=== PATIENT | male | born 1980 | race Caucasian/White ===

== ENCOUNTER 2020-04-05 08:00 | Outpatient (RCR) | payer MEDICAID, SELFPAY ==
--- NOTE | 2020-02-17 12:58 | MHC.PT.EP ---
[facility] [place] [facility] [place] [facility] [place] [facility] [address] [phone] F: [phone] F: [phone] F: [phone] F: [phone] Physical Therapy Plan of Care Date of Evaluation: 02/17/20 Date of Surgery: Diagnosis: CVA Assessment: Patient is a 39 year old R handed male who presents with s/s consistent with CVA. He does not work and was homeless down in [place] prior to stroke. Patient past medical history includes alcoholism, high cholesterol. He is no longer drinking but is non-compliant with medications. Sensation is seemingly absent in R LE/UE. Current impairments include ROM, strength, safety, independence, activity tolerance and functional mobility. Functional limitations include decreased ability to walk, stand, transfer, negotiate stairs, and perform weight bearing activities.. Patient is motivated with good rehab potential. Skilled PT will address impairments and functional limitations in order to achieve goals. Frequency and Duration: The patient will be seen 2x/week for 6 weeks Short Term Goals: I with HEP - 2 weeks Able to bike 15 minutes - 3 weeks Able to walk > 30 minutes - 3 week Coat Padder Goals: LE strength 4/5 grossly - 5 weeks LEFS 60/80 - 6 weeks Able to walk/stand 45 minutes - 6 weeks Treatment Plan: Modalities to reduce pain, spasms and effusion. Manual therapy to restore motion and function. Therapeutic exercise to improve strength and flexibility. Neuromuscular re-education for posture and balance. Therapeutic activities to return to functional activities of daily living. Please sign and return to therapist. Thank you for your referral.
--- NOTE | 2020-04-05 08:51 | MHC.PT.DC ---
[facility] [place] [facility] [place] Office [place] Office [address] [phone] F: [phone] F: [phone] F: [phone] F: [phone] Physical Therapy Discharge Report Diagnosis: CVA Date of Surgery: Date of Evaluation: 02/17/20 Date of Discharge: 04/05/20 Treatments to Date: 8 Cancellations to Date: No Shows to Date: Discharge Status: Recommend MD Follow-up Discharge Summary: While he has given great effort and been able to do everything asked of him, there has been no indication that is R side is responding to PT in any meaningful way. I encouraged him to continue with strength and aerobic exercise for overall health. We will d/c from PT at this time. Electronically signed by: Yonathan Rock, PT Please sign and return to therapist. Thank you for your referral.
== END 2020-04-05 08:52 | disposition home or self-care (01) ==
LOC: HO.PTCHIC 08:00
PROVIDERS: PCP Internal Medicine; Visit Provider Internal Medicine
DX: I69.351 Hemiplegia and hemiparesis following cerebral infarction affecting right dominant side (principal)
CPT/HCPCS: 97110; 97112; 97163

== ENCOUNTER 2021-03-28 09:23 | Outpatient (REF) | payer MEDICARE, MEDICAID, SELFPAY ==
--- NOTE | ~2021-03-28 | XR_ITS ---
EXAMINATION: XR RIBS, BILATERAL CLINICAL INFORMATION: Chest pain unspecified COMPARISON: None TECHNIQUE: 3 views of the bilateral ribs were obtained. FINDINGS: Lungs are clear. No consolidation, pneumothorax, or pleural effusion. The cardiomediastinal silhouette and pulmonary vasculature are normal. Osseous structures are unremarkable. Ribs are intact. No fractures are identified. XR/XR ribs BI min 4V w CXR1V IMPRESSION: Unremarkable examination.
== END 2021-03-28 09:24 | disposition home or self-care (01) ==
LOC: HO.XRAY 09:23
PROVIDERS: Visit Provider Internal Medicine
DX: R07.9 Chest pain, unspecified (principal)
CPT/HCPCS: 71111

== ENCOUNTER → 2022-09-05 10:56 | Outpatient (REF) | payer OTHER, SELFPAY ==
--- NOTE | 2022-09-05 11:01 | CA_ITS ---
Transthoracic Echocardiogram Patient (Last, First, Middle): Fidel Joyner A Gender: Male Date of : 1980 Age: 42 Procedure Date: 09/05/2022 Procedure Type: Transthoracic Echocardiogram Location: OP Height: 172.72 cm Weight: 58.06 kg BSA: 1.69 m2 Heart Rate: bpm BP: 118 / 60 mmHg Roll Icer Machine: Referring MD: Ben Pratt MD Symptoms: HX CVA, BUBBLE DONE Study Quality: Adequate ECG Rhythm: Sinus Conclusions: - The left ventricular systolic function is normal. The calculated ejection fraction is 56% by biplane method. - There is no evidence of interatrial shunt by agitated saline. - No obvious valvular pathology seen on this study. Findings Left Ventricle Normal left ventricular cavity size. There is normal left ventricular wall thickness. The left ventricular systolic function is normal. The calculated ejection fraction is 56% by biplane method. There is no evidence of regional wall motion abnormalities. Diastolic function is normal for age. Right Ventricle Normal right ventricular cavity size and systolic function. Atria Both atria are normal in size. There is no evidence of interatrial shunt by agitated saline. (rest and valsalva). Aortic Valve The aortic valve was not well visualized. The aortic valve structure and function is likely normal. There is no aortic valve stenosis. There is trace (trivial) aortic valve regurgitation. Mitral Valve The mitral valve appears normal. There is no mitral valve regurgitation. There is no mitral valve stenosis. Pulmonic Valve The pulmonic valve is likely normal. Tricuspid Valve Normal tricuspid valve structure. There is trace tricuspid valve regurgitation. There is no evidence of pulmonary hypertension. Great Vessels The asc aorta is normal in size. Venous The inferior vena cava is normal in size and collapses greater than 50% with inspiration. Pericardium/Pleural There is no evidence of pericardial effusion. Prior Study Comparison No prior study available for comparison. Recommendations, Care & Conclusions No obvious valvular pathology seen on this study. Measurements 2D Linear Measurements IVSd: 0.86 0.6-0.9/0.6-1.0 cm LVIDd: 4.09 3.9-5.3/4.2-5.9 cm LVIDd Index: 2.42 2.4-3.2/2.2-3.1 cm/m2 LVIDs: 2.49 2.0-3.6 cm LVPWd: 0.96 0.7-1.1 cm Ao Root: 2.90 2.1-3.5 cm LA Diam: 2.80 2.7-3.8/3.0-4.0 cm LAIDs Index: 1.66 1.5-2.3 cm/m2 LV Mass: 144.18 67-162/88-224 g LV Mass Index: 85.31 43-95/49-115 g/m2 LVOT Diam: 2.10 3.0+(-)1.3 cm 2D Systolic Function EF 4C: 60.20 >55% EF 2C: 53.30 >55% EF BiP: 56.20 >55% Mitral Valve MV Pk E: 0.61 MV PK A: 0.52 MV Decel Time: 175.00 E/A: 1.20 E'Lateral: 12.60 E'Medial: 8.49 E/E' Med: 7.20 E/E' Lat: 4.90 PHT: 51.00 MVA PHT: 4.31 Decel [place]: 3.49 Aortic Valve AoV Pk Tommy: 1.35 AoV Mn Tommy: 0.87 AoV VTI: 0.32 AoV Pk Grad: 7.00 Aov Mn Grad: 4.00 DILSHAD Cont.VTI: 2.23 LVOT LVOT Pk Tommy: 0.99 LVOT Mn Tommy: 0.58 LVOT VTI: 0.21 LVOT Pk Grad: 4.00 LVOT Mn Grad: 2.00 LVOT Diam: 2.10 LVOT Area: 3.46 Diastolic Function MV Pk E: 0.61 MV Pk A: 0.52 E/A: 1.20 E'Medial: 8.49 E/E' Med: 7.20 E' Laterial: 12.60 E/E' Lat: 4.90 Right Ventricle TAPSE (mm): 20.00 TVS' Tommy: 13.00 Tricuspid Valve TR Pk Tommy: 2.02 TR Pk Grad: 16.00 RA Press: 3.00 RVSP: 19.00 Great Vessels Aorta Ao Root-2D: 2.90 2.0-3.7 cm Ao Asc: 2.80 2.1-3.4 cm Pulmonary Valve PV Pk Tommy: 0.90 Peak PV Grad: 3.00 Updated in Other Vendor System with Status of Final Eugene Shaver MD electronically signed on 09/06/2022 4:46:33 PM with status of Final
== END ==
LOC: HO.CARD 10:56
PROVIDERS: PCP Internal Medicine; Visit Provider Internal Medicine
DX: Z86.73 Personal history of transient ischemic attack (TIA), and cerebral infarction without residual deficits (principal)
CPT/HCPCS: 93306

== ENCOUNTER 2025-01-07 14:14 | Outpatient (REF) | payer OTHER, SELFPAY ==
--- NOTE | 2025-01-07 14:21 | EMG_ITS ---
Chief complaint: Left lower leg pain History of right-sided hemiparesis from stroke. Denies lower back pain. Reason for referral: Evaluate for neuropathy Referred by: Dr. Jones Procedure done: Left lower extremity NCS/EMG Precautions and/or limitations: None The limb temperature was monitored continuously and remained between 32-36 degrees C during the performance of the NCS. Nerve Conduction Studies Anti Sensory Summary Table ?Stim Site NR Onset (ms) Norm Onset (ms) Peak (ms) Norm Peak (ms) O-P Amp (?V) Norm O-P Amp Site1 Site2 Delta-0 (ms) Dist (cm) Tommy (m/s) Norm Tommy (m/s) Left Sup Peron Anti Sensory (Ankle) Lateral Leg ? 2.1 3.2 <4.4 8.8 >5.0 Lateral Leg Ankle 2.1 14.0 67 Site 2 ? 2.2 3.3 12.0 Left Sural Anti Sensory (Lat Mall) Calf ? 3.4 4.0 <4.0 9.6 >5.0 Calf Lat Mall 3.4 14.0 41 Motor Summary Table ?Stim Site NR Onset (ms) Norm Onset (ms) O-P Amp (mV) Norm O-P Amp iAmp (mV) Amp (1st) (%) Site1 Site2 Delta-0 (ms) Dist (cm) Tommy (m/s) Norm Tommy (m/s) Left Peroneal Motor (Ext Dig Brev) Ankle ? 4.8 <4.0 4.6 >2.5 5.6 100.0 Ankle Ext Dig Brev 4.8 0.0 B Fib ? 12.3 3.6 4.3 78.3 B Fib Ankle 7.5 32.0 43 >40 Poplt ? 13.2 3.8 4.6 82.6 Poplt B Fib 0.9 5.0 56 >40 Left Peroneal TA Motor (Tib Ant) Fib Head ? 4.5 <4.2 4.0 4.9 100.0 Fib Head Tib Ant 4.5 0.0 Poplit ? 5.4 <5.7 4.8 6.0 120.0 Poplit Fib Head 0.9 5.0 56 >40.5 Left Tibial Motor (Abd Espinosa Brev) Ankle ? 3.4 <5 8.3 >2.5 12.4 100.0 Ankle Abd Espinosa Brev 3.4 0.0 Knee ? 13.0 6.4 9.0 77.1 Knee Ankle 9.6 44.0 46 >40 EMG ?Side Muscle Nerve Root Ins Act Fibs Psw Amp Dur Poly Recrt Int Pat Comment Left AbdHallucis MedPlantar S1-2 Nml Nml Nml Nml Nml 0 Nml Complete Left AntTibialis Dp Br Peron L4-5 Nml Nml Nml Nml Nml 0 Nml Complete Left MedGastroc Tibial S1-2 Incr 1+ 1+ Nml Nml 0 Nml Complete Left VastusMed Femoral L2-4 Nml Nml Nml Nml Nml 0 Nml Complete Left Peroneus Long Sup Br Peron L5-S1 Nml Nml Nml Nml Nml 0 Nml Complete Paraspinal EMG ?Side Muscle Nerve Root Ins Act Fibs Psw Comment Left Lumbar Upper Rami Nml Nml Nml Left Lumbar Mid Rami Nml Nml Nml Left Lumbar Lower Rami Incr 1+ 1+ FINDINGS: Left peroneal nerve, recording on both EDB and TA muscle, showed prolonged distal latency, normal amplitude and normal conduction velocity. No conduction block across fibular neck. All other nerves tested were within normal. Concentric needle EMG was performed in selected muscles of the left lower extremity in lumbar paraspinals. Study revealed signs of electric abnormalities as shown in the table above. Left medial gastrocnemius showed increased insertional activity, PSWs and fibrillations. Left lower lumbar paraspinals showed increased insertional activity, PSWs and fibrillations. IMPRESSION: 1. This is an abnormal study. 2. There is electrodiagnostic evidence for left L5-S1 radiculopathy. 3. There is no electrodiagnostic evidence for peroneal neuropathy, tibial neuropathy, lumbosacral plexopathy, or peripheral neuropathy. Thank you for your kind referral. Nasima Gonzalez MD, TIMBO Board Certified, [place] [employer] and Rehabilitation (ABPMR) Board Certified, [place] Board of Electrodiagnostic Medicine (ABEM) [place] [id number] [facility]
--- OUTSIDE RECORDS SUMMARY | 2025-01-07 18:40 | XMS_ITS | Clinical Summary ---
Author Organization [facility] Address [address] [place] [address] Care Team Providers Care Combatant Diver Qualified Name Role Phone Ben Toney MD Primary Care Prov ider Allergies No known active allergies Medications No known medications Active Problems Problem Noted Date Diagnosed Date History of stroke with residual effects 10/22/19 21 History of stroke 10/21/2020 Tobacco abuse 10/21/2020 Alcohol abuse 10/21/2020 Right spastic hemiparesis 10/21/2020 Family History Relation Name Status Comments Father Mother Alive Social History Tobacco Use Types Packs/Day Years Used Date Smoking Tobacco: Every Day Smokeless Tobacco: Current Alcohol Use Standard Drinks/Week Comments Never 0 (1 standard drink = 0.6 oz pur e alcohol) Sex and Gender Information Value Date Recorded Sex Assigned at Not on file Legal Sex Male 9:58 AM EDT Gender Identity Not on file Sexual Orientation Not on file Last Filed Vital Signs Vital Sign Reading Time Taken Comments Blood Pressure 111/65 02/08/2021 1:38 PM EDT Pulse 67 02/08/2021 1:38 PM EDT Temperature 36.6 C (97.9 F) 02/01/2021 3:19 PM EDT Respiratory Rate 18 02/01/2021 3:19 PM EDT Oxygen Saturation - - Inhaled Oxygen Concentration - - Weight 59 kg (130 lb) 02/08/2021 1:38 PM EDT Height 172.7 cm (5' 8 ) 02/08/2021 1:38 PM EDT Body Mass Index 19.77 02/08/2021 1:38 PM EDT Plan of Treatment Health Maintenance Due Date Last Done Comments Cologuard 1980 Colon Cancer Screening 1980 Colonoscopy 1980 FOBT / Fit Test 1980 HIV Screening 1980 Sigmoidoscopy 1980 Hepatitis B Vaccines (1 of 3 - 19+ 3-dose series) 1997 Alcohol/Substance Use Screening 04/15/2024 COVID-19 Vaccine (3 - 2024-2 6 season) 2024 11/22/2020, 11/01/2020 Influenza Vaccine (#1) 2024 DTaP,Tdap,and Td Vaccines (2 - Td or Tdap) 04/10/2029 04/10/2019, 04/30/2012 RSV Vaccine (60+ years old a nd patients) (1 - 1-dose 75+ series) 2053 Pneumococcal Vaccine: Pediatric (0-5 Years) and At-Risk Patients (6-50 Years) Aged Out No longer eligible based on patient's age to complete this topic Insurance [facility] [facility] [facility] Care Teams Combatant Diver Qualified Relationship Specialty Start Date End Date Ben Toney MD [address] [place] [address] PCP - General 01/05/20
--- OUTSIDE RECORDS SUMMARY | 2025-01-07 18:40 | XMS_ITS | Encounter Summary ---
Author Organization [facility] Address [address] [place] [address] Care Team Providers Care Melter Operator Name Role Phone Ben Toney MD Primary Care Prov ider Reason for Visit * Reason Onset Date Comments Pt needs Auth for EEG 02/06/2021 Encounter Details Date Type Department Care Team (Late st Contact Info) Description 02/06/2021 Telephone [facility] [address] [place] [id number] Telephone Intake, Staff Pt needs Auth for EEG Social History Tobacco Use Types Packs/Day Years Used Date Smoking Tobacco: Every Day Smokeless Tobacco: Current Alcohol Use Standard Drinks/Week Comments Never 0 (1 standard drink = 0.6 oz pur e alcohol) Sex and Gender Information Value Date Recorded Sex Assigned at Not on file Legal Sex Male 9:58 AM EDT Gender Identity Not on file Sexual Orientation Not on file documented as of this encounter Miscellaneous Notes * Telephone Encounter - Luzma Srinivasan - 02/06/2021 12:43 PM EDT Pt's mother called because she was told to call [facility] but she wasn't sure why. Patient needs an authorization for EEG. Page, patient's mother can be reached at [phone]. Thanks documented in this encounter Plan of Treatment Not on file documented as of this encounter Visit Diagnoses Not on filedocumented in this encounter Care Teams Melter Operator Relationship Specialty Start Date End Date Ben Toney MD [address] [place], [place] [id number] PCP - General 01/05/20 documented as of this encounter
--- OUTSIDE RECORDS SUMMARY | 2025-01-07 18:40 | XMS_ITS | Encounter Summary ---
Author Organization [facility] Address [address] [place] [address] Care Team Providers Care Contact Center Associate Name Role Phone Ben Toney MD Primary Care Prov ider Encounter Details Date Type Department Care Team (Late st Contact Info) Description 01/31/2021 Orders Only [facility] [address] [place] [phone] Provider, Nii, [address] [place] [id number] Social History Tobacco Use Types Packs/Day Years [...] on file documented as of this encounter Plan of Treatment Not on file documented as of this encounter Procedures * Due to [place] law, this organization might not be sharing negative HIV tests. Procedure Name Priority Date/Time Associated Diagnosis Comments AMB EXTERNAL MRI BRAIN, OUTS GABRIEL RESULT Routine 09/08/[address] HEAD, OUTSID E RESULT Routine 09/08/2019 documented in this encounter Results * Due to [place] law, this organization might not be sharing negative HIV tests. * MRI Brain, Outside Result (09/08/2019) Anatomical Region Laterality Modality Other us Unknown Provider MD YANCEY EXTERNAL RESULT PROCEDUR ES Final Result * CT Head, Outside Result (09/08/2019) Anatomical Region Laterality Modality Other us Unknown Provider MD YANCEY EXTERNAL RESULT PROCEDUR ES Final Result documented in this encounter Visit Diagnoses Not on filedocumented in this encounter Care Teams Contact Center Associate Relationship Specialty Start Date End Date Ben Toney MD [address] [place] [id number] PCP - General 01/05/20 documented as of this encounter
--- OUTSIDE RECORDS SUMMARY | 2025-01-07 18:40 | XMS_ITS | Clinical Summary ---
Author Organization [employer] Address [address] [facility] 7[address] [place] [address] Care Team Providers Care Drawer Waxer Name Role Phone Piyush Jones MD Primary Care Provider [phone]- [phone] Allergies No known active allergies Medications triamcinolone (Kenalog) 0.1 % creamIndication s:Spongiotic dermatitis APPLY TO THE AFFECTED AREA(S) TWICE DAILY TWICE DAILY IN THE MORNING AND AT BEDTIME NEEDED FOR PAIN AND FOR SWELLING 80 g 11 10/16/2023 Active Active Problems Problem Noted Date Diagnosed Date Smoking addiction 12/17/2024 Mixed hyperlipidemia 05/18/2022 Assessment & Plan (05/18/2022 10:23 AM EST): Patient with hx of cva, he does not want to take atorvastatin, risk vs benefits discussed CVA, old, hemiparesis 05/18/2022 Assessment & Plan (08/13/2022 9:19 AM EDT): [facility]rology [facility], [facility] and a 30 day holter monitor, will place orders, he refuse statin/aspirin therapy, Assessment & Plan (05/18/2022 10:24 AM EST): Lost follow up with neurology on [facility] to [place], provided telephone number to reschedule appointment, patient does not want to take aspirin/atorvastatin Encounters Date Type Department Care Team Description 12/17/2024 2:00 PM EDT Office Visit [facility] [address] [place] [address] Piyush Jones MD Mixed hyperlipidemia (Primary Dx); CVA, old, hemiparesis (CMS/HCC); Lower limb pain, posterior, left; Screening for colon cancer; Smoking addiction; Weight loss, abnormal 12/17/2024 Travel from Last 3 Months Immunizations Immunization Administration Dates Next Due Td (adult), 5 Lf tetanus tox oid, preservative free, adsorbed 04/30/2012 Td (adult), unspecified 08/16/2011 Tdap 12/18/2024,04/10/2019 Social History Tobacco Use Types Packs/Day Years Used Date Smoking Tobacco: Every Day Cigarettes Passive Smoke Exposure: Current Smokeless Tobacco: Never Tobacco Cessation:Ready to Q uit: Not Asked; Counseling Given: Not Answered Depression Answer Date Recorded Patient Health Questionnaire-9 Score 4 12/17/2024 Patient Health Questionnaire-9 Score 4 12/17/2024 Last PHQ-9: Questionnaire Data Not on file 0 12/17/2024 Housing Stability Answer Date Recorded What is your housing situation today? I have sarah serrano 12/17/[address] you li ve. Do you have problems with any of the following? None of the above 12/17/2024 Food Insecurity Answer Date Recorded Within the past 12 months, y ou worried that your food would run out before you got money to buy more: Never True 12/17/2024 Within the past 12 months,th e food you bought just didn't last and you didn't have enough money to get more: Never True 07/2024 Transportation Answer Date Recorded In the past 12 months, has l ack of transportation kept you from medical appts, meetings, work or from getting things needed for daily living? No 12/17/2024 Utilities Answer Date Recorded In the past 12 months, has t he electric, gas, oil or water company threatened to shut off services in your home? No 12/17/2024 Depression Answer Date Recorded Patient Health Questionnaire-2 Score 0 12/17/2024 Internet Access Answer Date Recorded Internet Access Q1 Yes 12/17/2024 Internet Access Q2 Not on file 12/17/2024 Sex and Gender Information Value Date Recorded Sex Assigned at Male 02/12/2022 10:36 AM EDT Legal Sex Male 10:36 AM EDT Gender Identity Male 02/12/2022 10:36 AM EDT Sexual Orientation Straight 10/09/2022 10 :51 AM EDT Last Filed Vital Signs Vital Sign Reading Time Taken Comments Blood Pressure 115/69 12/17/2024 2:17 PM EDT Pulse 77 12/17/2024 2:17 PM EDT Temperature 36.6 C (97.8 F) 10/30/2022 2:43 PM EDT Respiratory Rate 20 12/17/2024 2:17 PM EDT Oxygen Saturation 97% 12/17/2024 2:17 PM EDT Inhaled Oxygen Concentration - - Weight 54.4 kg (120 lb) 12/17/2024 2:17 PM EDT Height 172.7 cm (5' 8 ) 12/17/2024 2:17 PM EDT Body Mass Index 18.25 12/17/2024 2:17 PM EDT Plan of Treatment Health Maintenance Due Date Last Done Comments CT Colonography 1978 Colonoscopy 1978 Colorectal Cancer Screening 1978 Dental Prophylaxis 1978 FIT DNA/Cologuard 1978 FIT 1978 FOBT 1978 Sigmoidoscopy 1978 Disability Screening 1978 Family Planning (PISQ) 1993 Dental Oral Exam 05/24/2023 11/20/2022 Dental X-Ray: Bitewings 11/22/2023 11/20/2022 COVID-19 Vaccine ( season) 2024 09/01/2021, 11/22/2020, 11/01/2020 Influenza Vaccine (#1) 2024 Dental X-Ray: Full Mouth 11/21/2025 11/20/2022 Alcohol/Substance Use Screening 12/17/2025 12/17/2024 Depression Screening 12/17/2025 12/17/2024, 12/18/19 Hepatitis B Vaccines (1 of 3 - 19+ 3-dose series) 12/17/2025 Postponed from 1997 (Patient Refused) Pneumococcal Vaccine: Pediatrics (0 to 5 Years) and At-Risk Patients (6 to 49) Years (1 of 2 - PCV) 12/17/2025 Postponed from 1997 (Patient Refused) SDOH Screening 12/17/2025 12/17/2024 Tobacco Screening 12/17/2025 12/17/2024 Lipid Panel 06/19/2027 06/18/2022, 11/03/2021 Zoster Vaccines (1 of 2) 2028 DTaP/Tdap/Td Vaccines (3 - Td or Tdap) 12/18/2034 12/18/2024, 04/10/2019, 04/30/2012, Additional history exists RSV Patients and Patients Aged 60 years or older (1 - 1-dose 75+ series) 2053 HIV Screening Completed 06/18/2022, 04/10/2019 Hepatitis C Screening Completed 06/18/2022 HIB Vaccines Aged Out No longer eligi ble based on patient's age to complete this topic HPV Vaccines Aged Out No longer eligi ble based on patient's age to complete this topic Hepatitis A Vaccines Aged Out No long er eligible based on patient's age to complete this topic IPV Vaccines Aged Out No longer eligi ble based on patient's age to complete this topic Meningococcal B Vaccine Aged Out No l onger eligible based on patient's age to complete this topic Meningococcal Vaccine Aged Out No steve shiloh eligible based on patient's age to complete this topic RSV under 20 months Aged Out No longe r eligible based on patient's age to complete this topic Rotavirus Vaccines Aged Out No longer eligible based on patient's age to complete this topic Procedures Procedure Name Priority Date/Time Associated Diagnosis Comments INTRAORAL - COMPLETE SERIES OF RADIOGRAPHIC IMAGES Routine 11/20/2022 11:00 AM EDT COMPREHENSIVE ORAL EVALUATION - NEW OR ESTABLISHED PATIENT Routine 11/20/2022 10:30 AM EDT HEPATITIS C AB W/REFL TO HCV RNA, QN, PCR Routine 06/18/2022 8:56 AM EST Mixed hyperlipidemia CVA, old, hemiparesis (CMS/HCC) HIV 1 RNA, QN PCR W/RFL MAGALY (RTI,PI,INTEGRASE) Routine 06/18/2022 8:56 AM EST Mixed hyperlipidemia CVA, old, hemiparesis (CMS/HCC) LIPID PANEL, STANDARD Routine 06/18/2022 8:56 AM EST Mixed hyperlipidemia CVA, old, hemiparesis (CMS/HCC) from Last 3 Months or Most Recently Relevant to Health Maintenance Results * HIV-1 RNA, Quantitative, Real-Time PCR with Reflex to Genotype (RTI, PI, Integrase) (06/18/2022 8:56 AM EST) HIV 1 RNA, QN PCR NOT DETECTED copies/mL [email or web address], HIV 1 RNA, QN PCR NOT DETECTED Log copies/mL [email or web address], Comment: REFERENCE RANGE: NOT DETECTED copies/mL NOT DETECTED Log copies/mL This test was performed using Real-Time Polymerase Chain Reaction. Reportable range is 20 to 10,000,000 copies/mL (1.30-7.00 Log copies/mL). 06/18/2022 8:56 AM EST 06/18/2022 8:57 AM EST Narrative [facility] - 06/21/2022 4:58 PM EST FASTING:YES FASTING: YES Ben Pratt MD LAB BLOOD ORDERABL ES Final Result [facility] [address], [place] [address] [facility], [address] [place] [address] * Hepatitis C Antibody with Reflex to HCV, RNA, Quantitative, Real-Time PCR (06/18/2022 8:56 AM EST) Hepatitis C Antibody NON-REACT DELVIN NON-REACT DELVIN [facility] [employer] Index 0.05 <1.00 [facility] [employer] Comment: HCV antibody was non-reactive. There is no laboratory evidence of HCV infection. In most cases, no further action is required. However, if recent HCV exposure is suspected, a test for HCV RNA (test code 68514) is suggested. For additional information please refer to http://education.PWA/faq/RDC94t7 (This link is being provided for informational/ educational purposes only.) Blood Venous blood specimen / Unknown 06/18/2022 8:56 AM EST 06/18/2022 8:57 AM EST Narrative [facility] - 06/21/2022 4:58 PM EST FASTING:YES FASTING: YES Ben Pratt MD LAB BLOOD ORDERABL ES Final Result [facility] [address], [place] [address] [facility] [facility] [address] [facility], ([address]) [place] [address] * (ABNORMAL) Lipid Panel, Standard (06/18/2022 8:56 AM EST) Cholesterol, Total 262(H) <200 mg/dL [facility] HDL Cholesterol 46 > OR = 40 mg/dL [facility] Triglycerides 104 <150 mg/dL [facility] LDL Cholesterol 193(H) mg/dL (calc) [facility] Comment: LDL-C levels > or = 190 mg/dL may indicate familial hypercholesterolemia (FH). Clinical assessment and measurement of blood lipid levels should be considered for all first degree relatives of patients with an FH diagnosis. For questions about testing for familial hypercholesterolemia, please call [employer] [facility] at [email or web address]. Salazar T, et al. J National Lipid Association Recommendations for Patient-Centered Management of Dyslipidemia: Part 1 Journal of Clinical Lipidology 2015;9(2), 129-169. Reference range: <100 Desirable range <100 mg/dL for primary prevention; <70 mg/dL for patients with CHD or diabetic patients with > or = 2 CHD risk factors. LDL-C is now calculated using the Wally-Sharad calculation, which is a validated novel method providing better accuracy than the Friedewald equation in the estimation of LDL-C. Wally HAQ et al. DENILSON. 2013;310(19): 7878-8017 (http://education.[employer].[place] [employer]/faq/RQZ289) Chol/HDLC Ratio 5.7(H) <5.0 (calc) [facility] Non-HDL Cholesterol 216(H) <130 mg/dL (calc) [facility] Comment: For patients with diabetes plus 1 major ASCVD risk factor, treating to a non-HDL-C goal of <100 mg/dL (LDL-C of <70 mg/dL) is considered a therapeutic option. Blood Venous blood specimen / Unknown 06/18/2022 8:56 AM EST 06/18/2022 8:57 AM EST Narrative [facility] - 06/21/2022 4:58 PM EST FASTING:YES FASTING: YES us Ben Pratt MD LAB BLOOD ORDERABL ES Final Result [facility] [address], [place] [address] [facility] [employer] [address] [facility], ([address]) [place] [address] from Last 3 Months or Most Recently Relevant to Health Maintenance Insurance [facility] [address] [id number] [facility] Care Teams Drawer Waxer Relationship Specialty Start Date End Date Piyush Jones MD [address] [place], [place] [address] [place] [address] PCP - General Internal Medicine 01/04/23
--- OUTSIDE RECORDS SUMMARY | 2025-01-07 18:40 | XMS_ITS | Encounter Summary ---
Author Organization [facility] Address [address] [place] [address] Care Team Providers Care Squilgeer Name Role Phone Ben Toney MD Primary Care Prov ider Encounter Details Date Type Department Care Team (Late st Contact Info) Description 11/10/2021 Telephone [facility] Central Scheduling Department [address] [place] [address] Telephone Intake, Staff Social History Tobacco Use Types Packs/Day Years [...] encounter Miscellaneous Notes * Telephone Encounter - Sveta Xiong - 11/10/2021 12:10 PM EDT Return call back left voicemail for mother to call back * Telephone Encounter - Angelica Chandra - 11/10/2021 11:56 AM EDT Mother is calling for her son wondering if [employer] insurance but it only has here contact payor Mother said she wanted to know if her son is still able to still have care with this plan Please give her a call back at [phone] page I did advise to call her insurance documented in this encounter Plan of Treatment Not on file documented as of this encounter Visit Diagnoses Not on filedocumented in this encounter Care Teams Squilgeer Relationship Specialty Start Date End Date SandovalBen Merritt MD [address] [place] [address] PCP - General 01/05/20 documented as of this encounter
--- OUTSIDE RECORDS SUMMARY | 2025-01-07 18:40 | XMS_ITS | Encounter Summary ---
Author Organization [employer] Address [address] [facility] 7t [place] [address] Care Team Providers Care Money Market Dealer Name Role Phone Piyush Jones MD Primary Care Provider [phone]- [phone] Encounter Details Date Type Department Care Team ([facility] st Contact Info) Description 01/18/2023 Abstract [facility]ULT [facility] [address] [place] [address] Valente Escobar DDS [address] [place] [address] Social History Tobacco Use Types Packs/Day Years Used Date Smoking Tobacco: Every Day Cigarettes Passive Smoke Exposure: Current Smokeless Tobacco: Never Sex and Gender Information Value Date Recorded Sex Assigned at Male 02/12/2022 10:36 AM EDT Legal Sex Male 10:36 AM EDT Gender Identity Male 02/12/2022 10:36 AM EDT Sexual Orientation Straight 10/09/2022 10 :51 AM EDT documented as of this encounter Plan of Treatment Not on file documented as of this encounter Visit Diagnoses Not on filedocumented in this encounter Care Teams Money Market Dealer Relationship Specialty Start Date End Date Piyush Jones MD [address] [place] [address] PCP - General Internal Medicine 01/04/23 documented as of this encounter
== END 2025-01-07 14:15 | disposition home or self-care (01) ==
LOC: HO.NEURO 14:14
PROVIDERS: PCP Internal Medicine; Visit Provider Internal Medicine
DX: M79.605 Pain in left leg (principal); Z86.73 Personal history of transient ischemic attack (TIA), and cerebral infarction without residual deficits; R94.131 Abnormal electromyogram [EMG]
CPT/HCPCS: 95886; 95908

== ENCOUNTER → 2025-01-07 14:21 | Outpatient (BNV) | payer OTHER, SELFPAY | PROVIDERS: PCP Internal Medicine; Visit Provider Physical Medicine & Rehabilitation | DX: M54.16 Radiculopathy, lumbar region (principal) | CPT/HCPCS: 95886; 95909 ==

== ENCOUNTER → 2025-02-19 10:02 | Outpatient (BNV) | payer OTHER, SELFPAY | PROVIDERS: PCP Internal Medicine; Visit Provider Radiology Diagnostic Radiology | DX: M47.27 Other spondylosis with radiculopathy, lumbosacral region (principal); M47.25 Other spondylosis with radiculopathy, thoracolumbar region | CPT/HCPCS: 72148 ==

== ENCOUNTER 2025-02-19 10:05 | Outpatient (REF) | payer OTHER, SELFPAY ==
--- NOTE | ~2025-02-19 | MR_ITS ---
EXAMINATION: MR LUMBAR SPINE WITHOUT IV CONTRAST History: L5-S1 radiculopathy on NCS Technique: Sagittal T1, T2 and STIR, and axial T1 and T2 weighted images of the lumbar spine were obtained per departmental protocol. Comparison: There are no prior studies available for comparison. Findings: The vertebral bodies maintain normal height, alignment, and marrow signal intensity. There is mild degenerative disc disease at the T11-12 and T12-L1 levels with disc desiccation and loss of disc height. The lumbar intervertebral discs maintain normal height and hydration. At T11-12, there is a tiny left paramedian disc protrusion which partially effaces the anterior subarachnoid space. There is no central spinal or neural foraminal stenosis. At T12-L1,there is no evidence of disc herniation, central spinal stenosis or neural foraminal narrowing. At L1-2, there is no evidence of disc herniation, central spinal stenosis or neural foraminal narrowing. At L2-3, there is no evidence of disc herniation, central spinal stenosis or neural foraminal narrowing. At L3-4, there is no evidence of disc herniation, central spinal stenosis or neural foraminal narrowing. At L4-5, there is no evidence of disc herniation, central spinal stenosis or neural foraminal narrowing. At L5-S1, there is no evidence of disc herniation, central spinal stenosis or neural foraminal narrowing. The conus terminates at the T12-L1 level and demonstrates normal signal intensity. The visualized paraspinal soft tissues are unremarkable. MR/MR lumbar spine wo con Impression: Mild degenerative changes at the thoracolumbar junction. Otherwise unremarkable MRI of the lumbar spine. Electronically signed by: Royer Whalen MD 02/19/2025 11:25 AM [facility]
--- OUTSIDE RECORDS SUMMARY | 2025-02-19 11:51 | XMS_ITS | Encounter Summary ---
Author Organization [facility] Address [address] [place] [address] Care Team Providers Care High School Music Teacher Name Role Phone Ben Toney MD Primary Care Prov ider Reason for Visit * Reason Onset Date Comments Pt needs Auth for EEG 02/06/2021 Encounter Details Date Type Department Care Team (Late st Contact Info) Description 02/06/2021 Telephone [facility] [address] [place] [address] Telephone Intake, Staff Pt needs Auth for [...] Page, patient's mother can be reached at [phone]. Thanks documented in this encounter Plan of Treatment Not on file documented as of this encounter Visit Diagnoses Not on filedocumented in this encounter Care Teams High School Music Teacher Relationship Specialty Start Date End Date Ben Toney MD [address] [place], [place] [id number] PCP - General 01/05/20 documented as of this encounter
--- OUTSIDE RECORDS SUMMARY | 2025-02-19 11:51 | XMS_ITS | Encounter Summary ---
Author Organization [facility] Address [address] [place] [address] Care Team Providers Care Ethnic Studies Professor Name Role Phone Ben Toney MD Primary Care Prov ider Encounter Details Date Type Department Care Team (Late st Contact Info) Description 11/10/2021 Telephone [facility] Central Scheduling Department [address] [place] [address] Telephone Intake, Staff Social History Tobacco Use [...] Please give her a call back at [phone] page I did advise to call her insurance documented in this encounter Plan of Treatment Not on file documented as of this encounter Visit Diagnoses Not on filedocumented in this encounter Care Teams Ethnic Studies Professor Relationship Specialty Start Date End Date SandovalBen Merritt MD [address] [place] [address] PCP - General 01/05/20 documented as of this encounter
--- OUTSIDE RECORDS SUMMARY | 2025-02-19 11:51 | XMS_ITS | Clinical Summary ---
Author Organization [facility] Address [address] [place] [address] Care Team Providers Care Bench Examiner Name Role Phone Ben Toney MD Primary [...] patient's age to complete this topic Insurance [facility] Care Teams Bench Examiner Relationship Specialty Start Date End Date Ben Toney MD [address] [place] [address] PCP - General 01/05/20
--- OUTSIDE RECORDS SUMMARY | 2025-02-19 11:51 | XMS_ITS | Encounter Summary ---
Author Organization [employer] Address [address] [facility] 7t [place] [address] Care Team Providers Care Medical Microbiologist Name Role Phone Piyush Jones MD Primary Care Provider [phone]- [phone] Encounter Details Date Type Department Care Team ([facility] st Contact Info) Description 01/18/[address] [facility] D[facility] [address] [place] [address] Valente Escobar DDS [address] [place] [address] Social History Tobacco Use Types Packs/Day Years [...] on filedocumented in this encounter Care Teams Medical Microbiologist Relationship Specialty Start Date End Date Piyush Jones MD [address] [place] [address] PCP - General Internal Medicine 01/04/23 documented as of this encounter
--- OUTSIDE RECORDS SUMMARY | 2025-02-19 11:51 | XMS_ITS | Encounter Summary ---
Author Organization [facility] Address [address] [place] [address] Care Team Providers Care Supervisor Ticket Sales Name Role Phone Ben Toney MD Primary Care Prov ider Encounter Details Date Type Department Care Team (Late st Contact Info) Description 01/31/2021 Orders Only [facility] [address] [place] [address] Provider, Nii, [address] [place] [address] Social History Tobacco Use Types Packs/Day [...] of this encounter Procedures * Due to [facility] law, this organization might not be sharing negative HIV tests. Procedure Name Priority Date/Time Associated Diagnosis Comments AMB EXTERNAL MRI BRAIN, OUTS GABRIEL RESULT Routine 09/08/[address] HEAD, OUTSID E RESULT Routine 09/08/2019 documented in this encounter Results * Due to [facility] law, this organization might not be sharing [...] on filedocumented in this encounter Care Teams Supervisor Ticket Sales Relationship Specialty Start Date End Date Ben Toney MD [address] [place] [address] PCP - General 01/05/20 documented as of this encounter
--- OUTSIDE RECORDS SUMMARY | 2025-02-19 11:51 | XMS_ITS | Encounter Summary ---
Author Organization [employer] Address [address] [place] [address] Care Team Providers Care Vegetable Scullion Name Role Phone Piyush Jones MD Primary Care Provider [phone] Reason for Referral * Imaging (Routine) - Authorized Specialty Diagnoses / Procedures Referred By Contac t Referred To Contact Radiology Diagnoses Lumbar radiculopathy Procedures MR Lumbar Spine w/o Contrast Piyush Jones MD [address] [place] [address] Phone: tel: fax: [address] Phone: tel: fax: Referral ID Status Reason Start Date Expiration Date V isits Requested Visits Authorized [id number] Authorized 01/08/2025 01/08/2026 1 1 Encounter Details Date Type Department Care Team (Late st Contact Info) Description 01/08/2025 Orders Only [facility] PEDS [address] [place] [address] Piyush Jones MD [address] [place] [address] Lumbar radiculopathy (Primary Dx); COPD exacerbation (CMS/HCC) Social History Tobacco Use Types Packs/Day Years Used Date Smoking Tobacco: Every Day Cigarettes Passive Smoke Exposure: Current Smokeless Tobacco: Never Depression Answer Date Recorded Patient Health Questionnaire-9 [...] file documented as of this encounter Procedures Procedure Name Priority Date/Time Associated Diagnosis Comments MR LUMBAR SPINE WO CONTRAST Routine 02/19/2025 10:13 AM EST Lumbar radiculopathy documented in this encounter Results * MR Lumbar Spine w/o Contrast (02/19/2025 10:13 AM EST) Anatomical Region Laterality Modality Spine, L-spine Magnetic Resonan ce 02/19/2025 10:1 3 AM EST Narrative 02/19/2025 11:28 AM EST [address] [address] Magnetic Resonance Report Signed Patient: Fidel Joyner MR#: [id number] 98 : 1980 Acct:[id number] Age/Sex: 44 / M ADM Date: 02/19/25 Loc: HO.MRI Attending Dr: Piyush Jones MD Ordering Physician: Piyush Jones MD Date of Service: 02/19/25 Procedure(s): MR lumbar spine wo con Accession Number(s): [id number] cc: Piyush Jones MD Reason for Exam: L5-S1 radiculopathy on NCS Workstation: [id number] EXAMINATION: MR LUMBAR SPINE WITHOUT IV CONTRAST History: L5-S1 radiculopathy on NCS Technique: Sagittal T1, T2 and STIR, and axial T1 and T2 weighted images of the lumbar spine were obtained per departmental protocol. Comparison: There are no prior studies available for comparison. Findings: The vertebral bodies maintain normal height, alignment, and marrow signal intensity. There is mild degenerative disc disease at the T11-12 and T12-L1 levels with disc desiccation and loss of disc height. The lumbar intervertebral discs maintain normal height and hydration. At T11-12, there is a tiny left paramedian disc protrusion which partially effaces the anterior subarachnoid space. There is no central spinal or neural foraminal stenosis. At T12-L1,there is no evidence of disc herniation, central spinal stenosis or neural foraminal narrowing. At L1-2, there is no evidence of disc herniation, central spinal stenosis or neural foraminal narrowing. At L2-3, there is no evidence of disc herniation, central spinal stenosis or neural foraminal narrowing. At L3-4, there is no evidence of disc herniation, central spinal stenosis or neural foraminal narrowing. At L4-5, there is no evidence of disc herniation, central spinal stenosis or neural foraminal narrowing. At L5-S1, there is no evidence of disc herniation, central spinal stenosis or neural foraminal narrowing. The conus terminates at the T12-L1 level and demonstrates normal signal intensity. The visualized paraspinal soft tissues are unremarkable. MR/MR lumbar spine wo con Impression: Mild degenerative changes at the thoracolumbar junction. Otherwise unremarkable MRI of the lumbar spine. Electronically signed by: Royer Whalen MD 02/19/2025 11:25 AM EST Dictated By: Royer Whalen MD Signed By: <Electronically signed by Royer Whalen MD in OV> 02/19/25 1125 DD/ 1013 TD/TT: 02/19/25 1045 Registration Specialist: Procedure Note Donotuseinterpreter, Image - 02/19/2025 [place] [address] Magnetic Resonance Report Signed Patient: Fidel Joyner AMR#: [id number] 98 : 1980Acct:[id number] Age/Sex: 44 / MADM Date: 02/19/25 Loc: HO.MRI Attending Dr: Piyush Jones MD Ordering Physician: Piyush Jones MD Date of Service: 02/19/25 Procedure(s): MR lumbar spine wo con Accession Number(s): [id number] cc: Piyush Jones MD Reason for Exam: L5-S1 radiculopathy on NCS EXAMINATION: MR LUMBAR SPINE WITHOUT IV CONTRAST History: L5-S1 radiculopathy on NCS Technique: Sagittal T1, T2 and STIR, and axial T1 and T2 weighted images of the lumbar spine were obtained per departmental protocol. Comparison: There are no prior studies available for comparison. Findings: The vertebral bodies maintain normal height, alignment, and marrow signal intensity. There is mild degenerative disc disease at the T11-12 and T12-L1 levels with disc desiccation and loss of disc height. The lumbar intervertebral discs maintain normal height and hydration. At T11-12, there is a tiny left paramedian disc protrusion which partially effaces the anterior subarachnoid space. There is no central spinal or neural foraminal stenosis. At T12-L1,there is no evidence of disc herniation, central spinal stenosis or neural foraminal narrowing. At L1-2, there is no evidence of disc herniation, central spinal stenosis or neural foraminal narrowing. At L2-3, there is no evidence of disc herniation, central spinal stenosis or neural foraminal narrowing. At L3-4, there is no evidence of disc herniation, central spinal stenosis or neural foraminal narrowing. At L4-5, there is no evidence of disc herniation, central spinal stenosis or neural foraminal narrowing. At L5-S1, there is no evidence of disc herniation, central spinal stenosis or neural foraminal narrowing. The conus terminates at the T12-L1 level and demonstrates normal signal intensity. The visualized paraspinal soft tissues are unremarkable. MR/MR lumbar spine wo con Impression: Mild degenerative changes at the thoracolumbar junction. Otherwise unremarkable MRI of the lumbar spine. Electronically signed by: Royer Whalen MD 02/19/2025 11:25 AM EST Dictated By: Royer Whalen MD Signed By: <Electronically signed by Royer Whalen MD in OV> 02/19/25 1125 DD/ 1013 TD/TT: 02/19/25 1045 Registration Specialist: Piyush Jones MD IMG MRI PROCEDURES Final Re sult documented in this encounter Visit Diagnoses Diagnosis Lumbar radiculopathy- Primary Thoracic or lumbosacral neuritis or radiculitis, unspecified COPD exacerbation (CMS/HCC) (HCC) Obstructive chronic bronchitis with exacerbation documented in this encounter Additional Health Concerns Assessment Noted Time PHQ-9 Depression Total Score: 4 12/18/19 25 2:19 PM EDT documented as of this encounter Care Teams Vegetable Scullion Relationship Specialty Start Date End Date Piyush Jones MD [address] [place] [id number] PCP - General Internal Medicine 01/04/23 documented as of this encounter
--- OUTSIDE RECORDS SUMMARY | 2025-02-19 11:51 | XMS_ITS | Clinical Summary ---
Author Organization [employer] Address [address] [facility] [address] [place] [address] Care Team Providers Care Support Technician Name Role Phone Piyush Jones MD Primary Care Provider [phone] Allergies No known active allergies Medications * This document contains information received from the source organization and may not represent a complete record from that organization. triamcinolone (Kenalog) 0.1 % creamIndicatio ns:Spongiotic dermatitis APPLY TO THE AFFECTED AREA(S) TWICE DAILY TWICE DAILY IN THE MORNING AND AT BEDTIME NEEDED FOR PAIN AND FOR SWELLING 80 g 11 5 Active triamcinolone (Kenalog) 0.1 % creamIndicatio ns:Spongiotic dermatitis APPLY TO THE AFFECTED AREA(S) TWICE DAILY TWICE DAILY IN THE MORNING AND AT BEDTIME NEEDED FOR PAIN AND FOR SWELLING 80 g 11 4 025 Discontinued Active Problems Problem Noted Date Diagnosed Date Smoking addiction 12/17/2024 Mixed hyperlipidemia 05/18/2022 Assessment & Plan (05/18/2022 10:23 AM EST): Patient with hx of cva, he does not want to take atorvastatin, risk vs benefits discussed CVA, old, hemiparesis ([facility]/HCC) 05/18/2022 Assessment & Plan (08/13/2022 9:19 AM EDT): Neurology from [facility], new TTE and a 30 day holter monitor, will place orders, he refuse statin/aspirin therapy, Assessment & Plan (05/18/2022 10:24 AM EST): Lost follow up with neurology on [facility] to [facility], provided telephone number to reschedule appointment, patient does not want to take aspirin/atorvastatin Encounters * This document contains information received from the source organization and may not represent a complete record from that organization. 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 Telephone [facility] PED[facility] [address] [place] [address] Piyush Jones MD Results 01/08/2025 Orders Only [facility] [address] [place] [address] Piyush Jones MD Lumbar radiculopathy (Primary Dx); COPD exacerbation (CMS/HCC) 12/17/2024 2:00 PM EDT Office Visit [facility]ED[facility] [address] [place] [address] Piyush Jones MD Mixed hyperlipidemia (Primary Dx); [...] 12/17/2025 12/17/2024 Depression Screening 12/17/2025 12/17/2024, 12/18/19 25 Hepatitis B Vaccines (1 of 3 - [...] Routine 02/19/2025 10:13 AM EST Lumbar radiculopathy INTRAORAL - COMPLETE SERIES OF RADIOGRAPHIC IMAGES [...] Recently Relevant to Health Maintenance Results * MR Lumbar Spine w/o Contrast (02/19/2025 10:13 AM EST) Anatomical Region Laterality Modality Spine, L-spine Magnetic Resonan ce 02/19/2025 10:1 3 AM EST Narrative 02/19/2025 11:28 AM EST [place] [address] Magnetic Resonance Report Signed Patient: Fidel Joyner MR#: [id number] 98 : 1980 Acct:[id number] Age/Sex: 44 / M ADM Date: 02/19/25 Loc: HO.MRI Attending Dr: Piyush Jones MD Ordering Physician: Piyush Jones MD Date of Service: 02/19/25 Procedure(s): MR lumbar spine wo con Accession Number(s): [id number] cc: Piyush Jones MD Reason for Exam: L5-S1 radiculopathy on NCS Workstation: [id number]-[id number] EXAMINATION: MR LUMBAR SPINE WITHOUT IV CONTRAST [...] 02/19/25 1125 DD/ 1013 TD/TT: 02/19/25 1045 Supervisor Channel Process: Procedure Note Donotuseinterpreter, Image - 02/19/[address] [address] Magnetic Resonance Report Signed Patient: Fidel Joyner#: [id number] 98 : 1980Acct:[id number] Age/Sex: 44 / MADM Date: 02/19/25 Loc: HO.MRI Attending Dr: Piyush Jones MD Ordering Physician: Piyush Jones MD Date of Service: 02/19/25 Procedure(s): MR lumbar spine wo con Accession Number(s): [id number] cc: Piyush Jones MD Reason for Exam: L5-S1 radiculopathy on NCS Workstation: [id number] EXAMINATION: MR LUMBAR SPINE WITHOUT IV CONTRAST [...] 02/19/25 1125 DD/ 1013 TD/TT: 02/19/25 1045 Supervisor Channel Process: us Piyush Jones MD IMG MRI PROCEDURES Final Re sult * HIV-1 RNA, Quantitative, Real-Time PCR with Reflex to Genotype (RTI, PI, Integrase) (06/18/2022 8:56 AM EST) Pathologist [facility] HIV 1 RNA, QN PCR NOT DETECTED copies/mL [facility], HIV 1 RNA, QN PCR NOT DETECTED Log copies/mL [facility], Comment: REFERENCE RANGE: NOT DETECTED copies/mL NOT DETECTED Log copies/mL This test was performed using Real-Time Polymerase Chain Reaction. Reportable range is 20 to 10,000,000 copies/mL (1.30-7.00 Log copies/mL). 06/18/2022 8:56 AM EST 06/18/2022 8:57 AM EST Narrative [facility] - 06/21/2022 4:58 PM EST FASTING:YES FASTING: YES us Ben Pratt MD LAB BLOOD ORDERABL ES Final Result [facility] [address], [place] [address] [employer] [facility], [address] [place] [address] * Hepatitis C Antibody with Reflex to HCV, RNA, Quantitative, Real-Time PCR (06/18/2022 8:56 AM EST) Pathologist [facility] Hepatitis C Antibody NON-REACT DELVIN NON-REACT DELVIN [employer] [employer] Index 0.05 <1.00 [employer] [employer] Comment: HCV antibody was non-reactive. There is no laboratory evidence of HCV infection. In most cases, no further action is required. However, if recent HCV exposure is suspected, a test for HCV RNA (test code 11765) is suggested. For additional information please refer to http://education.Paperless Post/faq/EBF70i2 (This link is being provided for informational/ educational purposes only.) Blood Venous blood specimen / Unknown 06/18/2022 8:56 AM EST 06/18/2022 8:57 AM EST Narrative [facility] - 06/21/2022 4:58 PM EST FASTING:YES FASTING: YES Ben Pratt MD LAB BLOOD ORDERABL ES Final Result [address], [facility], [place] [address] [employer] [address] [facility], ([address]) [place] [address] * (ABNORMAL) Lipid Panel, Standard (06/18/2022 8:56 AM EST) [facility] Cholesterol, Total 262(H) <200 mg/dL [employer] [place] [employer] HDL Cholesterol 46 > OR = 40 mg/dL [employer] Triglycerides 104 <150 mg/dL [facility] [place] LDL Cholesterol 193(H) mg/dL (calc) [employer] Comment: LDL-C levels > or = 190 mg/dL may indicate familial hypercholesterolemia (FH). Clinical assessment and measurement of blood lipid levels should be considered for all first degree relatives of patients with an FH diagnosis. For questions about testing for familial hypercholesterolemia, please call [employer] at [phone].GENE.INFO. Martin Martinez, et al. J National Lipid Association Recommendations for Patient-Centered Management of Dyslipidemia: Part 1 Journal of Clinical Lipidology 2015;9(2), 129-169. Reference range: <100 Desirable range <100 mg/dL for primary prevention; <70 mg/dL for patients with CHD or diabetic patients with > or = 2 CHD risk factors. LDL-C is now calculated using the Eleni calculation, which is a validated novel method providing better accuracy than the Friedewald equation in the estimation of LDL-C. Wally HAQ et al. DENILSON. 2013;310(19): 0143-8229 (http://education.ViS/faq/YQY274) Chol/HDLC Ratio 5.7(H) <5.0 (calc) [employer] Non-HDL Cholesterol 216(H) <130 mg/dL (calc) [employer] Comment: For patients with diabetes plus 1 major ASCVD risk factor, treating to a non-HDL-C goal of <100 mg/dL (LDL-C of <70 mg/dL) is considered a therapeutic option. Blood Venous blood specimen / Unknown 06/18/2022 8:56 AM EST 06/18/2022 8:57 AM EST Narrative [facility] - 06/21/2022 4:58 PM EST FASTING:YES FASTING: YES Ben Pratt MD LAB BLOOD ORDERABL ES Final Result [facility] [address], [place] [address] [facility] [address] [facility], ([address]) [place] [address] from Last 3 Months or Most Recently Relevant to Health Maintenance Insurance [facility] ONE CARE < 65 DENTAL - [facility] Care Teams Support Technician Relationship Specialty Start Date End Date Piyush Jones MD [address] [place] [address] JOCELYNN Strauss [address] PCP - General Internal Medicine 01/04/23
== END 2025-02-19 10:06 | disposition home or self-care (01) ==
LOC: HO.MRI 10:05
PROVIDERS: PCP Internal Medicine; Visit Provider Internal Medicine
DX: M54.16 Radiculopathy, lumbar region (principal)
CPT/HCPCS: 72148

== ENCOUNTER 2025-03-01 10:00 | Outpatient (REF) | payer OTHER, SELFPAY ==
--- NOTE | ~2025-03-01 | US_ITS ---
EXAMINATION: Noninvasive assessment ARTERIAL DUPLEX, ANKLE BRACHIAL INDICES (ABIs), and PULSE VOLUME RECORDINGS (PVRs) LOWER EXTREMITIES.. CLINICAL INFORMATION: Left lower extremity pain. TECHNIQUE: Ankle pulse volume recordings, ankle pressure measurements and ankle brachial indices were obtained of the lower extremity arterial system bilaterally. The study was performed only at rest. COMPARISON: None FINDINGS: BRACHIAL PRESSURES: Right: 152 Left: 156 ANKLE PRESSURES: Right: PT 108, DP 127 Left: PT 154, DP 160 ANKLE-BRACHIAL INDEX: Right: 0.81 Left: 1.03. ANKLE PVR WAVEFORMS: Right: Abnormal Left: Abnormal US/US NORBERT complete IMPRESSION: Right le.81. Left le.03. NORBERT Reference: - >1.4 = calcified vessels - 0.9 - 1.4 = normal - no significant arterial disease - 0.7 - 0.89 = mild peripheral arterial disease - 0.51 - 0.69 = moderate peripheral arterial disease - 0.50 = severe peripheral arterial disease - < .30 = critical arterial disease Electronically signed by: Danny Andrade MD 03/01/2025 10:45 AM [facility]
== END 2025-03-01 10:01 | disposition home or self-care (01) ==
LOC: HO.US 10:00
PROVIDERS: PCP Internal Medicine; Visit Provider Internal Medicine
DX: M79.605 Pain in left leg (principal)
CPT/HCPCS: 93923

== ENCOUNTER → 2025-03-01 10:20 | Outpatient (BNV) | payer OTHER, SELFPAY | PROVIDERS: PCP Internal Medicine; Visit Provider Radiology Diagnostic Radiology | DX: M79.662 Pain in left lower leg (principal) | CPT/HCPCS: 93923 ==

== ENCOUNTER 2025-03-31 10:06 | Outpatient (AMB) | payer OTHER, SELFPAY ==
--- NOTE | 2025-03-31 10:10 | A.OFFVIS_ITS ---
Vital Signs 03/31/25 10:11 Height 5 ft 8.5 in Weight 126 lb BMI 18.9 Intake Visit Reasons: [employer]NAGER/C faxed referral Art US Intake Note: [employer] TECHNICAL MANAGER/ C referral for Left LE pain. Pt states burning in his left ankle area, states since childhood. 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 Associate Of Science In Nursing Required: No Accompanied by: Self / Same As Patient Allergies lemon (Lemon) Adverse Reaction (Unknown, Unverified 03/31/25 10:17) VOMITS parsley Adverse Reaction (Unknown, Unverified 03/31/25 10:17) VOMITS thyme Adverse Reaction (Unknown, Unverified 03/31/25 10:17) VOMITS HPI HPI [employer]CH[employer] MANAGER/C faxed referral Art US: Details: The patient is a 44 year old male presenting for arterial evaluation of his legs. He reports a long-standing issue with his legs, which he believes may be h ereditary from his father. He describes one side as being paralyzed, with the problem now moving to his other side, specifically noting severe internal pain in his left ankle, which he considers his good side. This pain occurs infrequently, about once every 10-12 years, but is very intense when it happens. He has a history of a stroke which occurred on March 29, 2015 while he was in [place] and in some way related to his prior history of alcoholism. He reports smoking half a pack to three-quarters of a pack of cigarettes per day and denies any history of diabetes. Upon discussion with him he reports that the pain is mostly left ankle pain more so on the medial aspect. [facility] Social History (Updated 03/31/25 @ 10:19 by PREETHI Lopes) Patient Tobacco Use Status: Current everyday Tobacco user Cigarettes Per Day: 10 Review of Systems Const All systems reviewed & are unremarkable except as noted in HPI and below Reports no additional complaints ENT Reports Normal hearing present Card Denies chest pain, Denies chest pain at rest, Denies chest pain with activity and Denies pedal edema Resp Denies cough GI Denies abdominal pain Musc Denies abnormal gait, Denies muscle cramps and Denies radiating pain into limb Skin/Breast Denies skin ulcer and Denies wounds Neuro Reports Normal hearing present and Denies abnormal gait Psych Reports no additional complaints Physical Exam Vital Signs: BMI result Body Mass Index 18.9 Const General: cooperative, healthy appearing and comfortable Orientation/consciousness: oriented to person, oriented to place and oriented to time HEENT Head: Yes normal to inspection Neck Neck: Yes normal visual inspection Carotids: no bruits Chest Chest palpation & inspection: normal inspection of the chest Resp Effort & Inspection: normal respiratory effort and able to speak in complete sentences Auscultation: clear to auscultation bilaterally, no crackles, no rales, no rhonchi and no wheezes Cardio Other: Bilateral palpable dorsalis pedis pulses Rate: regular rate Rhythm: regular rhythm Heart sounds: S1 normal heart sound present and S2 normal heart sound present Bruits: no carotid bruits Peripheral pulses: Peripheral pulses 2+ throughout GI Inspection: Yes normal to inspection Skin Wounds: no wounds Hair: normal Neuro General: oriented to person, oriented to place and oriented to time Cranial nerves: Yes CN's II-XII intact bilaterally and Yes Normal hearing present Cognition (Neuro): normal cognition Motor exam (neuro): 5/5 motor strength present throughout Extrem Other: venous exam: No significant superficial varicosities or spider telangiectasias, minimal edema General: No clubbing, No cyanosis and No edema Psych Appearance: grossly normal Mental Status: mental status grossly normal Speech and movement: Normal speech and movement present Results Reviewed Results Reviewed: Noninvasive arterial testing dated 03/01/2025 demonstrates NORBERT on the right of 0.81 and on the left of 1.03. Normal waveforms. Written report and images were reviewed. Assessment & Plan Assessment & Plan (1) Leg pain: Code(s): M79.606 - Pain in leg, unspecified Category: Medical Qualifiers: Laterality: bilateral Qualified Code(s): M79.604 - Pain in right leg; M79.605 - Pain in left leg Plan: In short patient demonstrates bilateral lower extremity pain. Unusual part is this is intermittent in nature and is not associated with ambulation. It does not appear to be vascular in nature. I did review arterial ultrasound but patient does have palpable dorsalis pedis pulses bilaterally. I do think this is more neuropathic in nature and may be related to his prior history of alcoholism along with neuropathy. He will follow up with us on an as-needed basis. Thank you for allowing us to assist in his care. If there are any questions or concerns please do not hesitate to contact us Coding Level of Care Code New Pt Level 4 (43308) Diagnoses Pain in both lower extremities M79.604; M79.605 Laterality: bilateral
[2025-03-31 10:11] VITALS: BMI 18.9
--- OUTSIDE RECORDS SUMMARY | 2025-03-31 12:21 | XMS_ITS | Encounter Summary ---
Author Organization [facility] Address [address] [place] [address] Care Team Providers Care Yard General Car Supervisor Name Role Phone Ben Toney MD Primary Care Prov ider Reason for Visit * Reason Onset Date Comments Pt needs Auth for EEG 02/06/2021 Encounter Details Date Type Department Care Team (Late st Contact Info) Description 02/06/2021 Telephone [facility] [address] [place] [address] [id number] Telephone Intake, Staff Pt needs Auth for [...] Page, patient's mother can be reached at [phone]. Thanks documented in this encounter Plan of Treatment Not on file documented as of this encounter Visit Diagnoses Not on filedocumented in this encounter Care Teams Yard General Car Supervisor Relationship Specialty Start Date End Date Ben Toney MD [address] [place], [place] [phone] PCP - General 01/05/20 documented as of this encounter
--- OUTSIDE RECORDS SUMMARY | 2025-03-31 12:21 | XMS_ITS | Encounter Summary ---
Author Organization [employer] Address [address] [place] [address] 7 [place] [address] Care Team Providers Care Needle Grader Name Role Phone Piyush Jones MD Primary Care Provider [phone]- [phone] Encounter Details Date Type Department Care Team (Late Contact Info) Description 01/18/2023 Abstract [facility] [address] [place], [place] [phone] Valente Escobar DDS [address] [place] [address] Social History Tobacco Use Types Packs/Day Years [...] as of this encounter Plan of Treatment Upcoming Encounters Date Type Department Care Team (Late st Contact Info) Description 04/06/2025 11:30 AM EST Office Visit [facility] PEDS [address] [place] [address] Piyush Jones MD [address] [place], [place] [phone] documented as of this encounter Visit Diagnoses Not on filedocumented in this encounter Care Teams Needle Grader Relationship Specialty Start Date End Date Piyush Jones MD [address] [place], [place] [phone] PCP - General Internal Medicine 01/04/23 documented as of this encounter
--- OUTSIDE RECORDS SUMMARY | 2025-03-31 12:21 | XMS_ITS | Encounter Summary ---
Author Organization [employer] Address [address] [facility] 7t [place] [address] Care Team Providers Care Television Equipment Operator Name Role Phone Piyush Jones MD Primary Care Provider [phone]- [phone] Reason for Referral * Consultation (Routine) - Authorized Specialty Diagnoses / Procedures Referred By Contac t Referred To Contact Vascular Surgery Diagnoses CVA, old, hemiparesis (CMS/HCC) (HCC) Lower limb pain, posterior, left Piyush Jones MD [address] [place] [address] Phone: tel: fax: Griffin Briones MD [address] [place] [address] Phone: tel: fax: Referral ID Status Reason Start Date Expiration Date Visits Requested Visits Authorized [id number] Authorized Specialty Services Required 5 03/02/2026 1 1 * Consultation (Routine) - Closed Specialty Diagnoses / Procedures Referred By Contac t Referred To Contact Physical Therapy Diagnoses CVA, old, hemiparesis (CMS/HCC) (HCC) Degenerative disc disease, 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 and lower extremity pain Piyush Jones MD [address] [place] [address] Phone: tel: fax: Physical Therapy, AT [address] [place] Phone: tel: fax: Referral ID Status Reason Start Date Expiration Date V isits Requested Visits Authorized [id number] Closed Specialty Services Required 02/19/2025 02/19/2026 1 1 Encounter Details Date Type Department Care Team (Late st Contact Info) Description 02/19/2025 Orders Only [facility] [address] [place] [address] Piyush Jones MD [address] [place] [address] CVA, old, hemiparesis (CMS/HCC) (HCC) (Primary Dx); Degenerative disc disease, thoracic; Degeneration of intervertebral disc of lumbar region with discogenic back pain and lower extremity pain; Lower limb pain, posterior, left Social History Tobacco Use Types Packs/Day Years [...] Upcoming Encounters Date Type Department Care Team ([facility] st Contact Info) Description 04/06/2025 11:30 AM EST Office Visit [facility] [address] [place] [address] Piyush Jones MD [address] [place] [address] Scheduled Referrals Name Type Priority Associated Diagnoses Orde r Schedule Referral to Physical Therapy Outpatient Referral Routine CVA, old, hemiparesis (CMS/HCC) (HCC) Degenerative disc disease, 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 and lower extremity pain Expected: 02/19/2025 (Approximate), Expires: 02/19/2026 Referral to Vascular Surgery Outpatient Referral Routine CVA, old, hemiparesis (CMS/HCC) (HCC) Lower limb pain, posterior, left Expected: 03/02/2025 (Approximate), Expires: 03/02/2026 documented as of this encounter Procedures Procedure Name Priority Date/Time Associated Diagnosis Comments US NORBERT COMPLETE Routine 03/01/2025 10:20 AM EST documented in this encounter Results * US NORBERT COMPLETE (03/01/2025 10:20 AM EST) Anatomical Region Laterality Modality Abdomen Ultrasound 03/01/2025 10:2 0 AM EST Narrative 03/01/2025 10:48 AM EST [address] [address] Ultrasound Report Signed Patient: Fidel Joyner MR#: [id number] 98 : 1980 Acct:[id number] Age/Sex: 44 / M ADM Date: 03/01/25 Loc: . Attending Dr: Piyush Jones MD Ordering Physician: Piyush Jones MD Date of Service: 03/01/25 Procedure(s): US NORBERT complete Accession Number(s): [id number] cc: Piyush Jones MD Reason for Exam: LEFT LOWER LIMB PAIN EXAMINATION: Noninvasive assessment ARTERIAL DUPLEX, ANKLE BRACHIAL INDICES (ABIs), and PULSE VOLUME RECORDINGS (PVRs) LOWER EXTREMITIES.. CLINICAL INFORMATION: Left lower extremity pain. TECHNIQUE: Ankle pulse volume recordings, ankle pressure measurements and ankle brachial indices were obtained of the lower extremity arterial system bilaterally. The study was performed only at rest. COMPARISON: None FINDINGS: BRACHIAL PRESSURES: Right: 152 Left: 156 ANKLE PRESSURES: Right: PT 108, DP 127 Left: PT 154, DP 160 ANKLE-BRACHIAL INDEX: Right: 0.81 Left: 1.03. ANKLE PVR WAVEFORMS: Right: Abnormal Left: Abnormal US/US NORBERT complete IMPRESSION: Right le.81. Left le.03. NORBERT Reference: - >1.4 = calcified vessels - 0.9 - 1.4 = normal - no significant arterial disease - 0.7 - 0.89 = mild peripheral arterial disease - 0.51 - 0.69 = moderate peripheral arterial disease - 0.50 = severe peripheral arterial disease - < .30 = critical arterial disease Electronically signed by: Danny Andrade MD 03/01/2025 10:45 AM [facility] Dictated By: Danny Pederson MD Signed By: <Electronically signed by Danny Vigil MD in OV> 03/01/25 1045 DD/ 1020 TD/TT: 03/01/25 1035 Boilerhouse Mechanic: Procedure Note Donotuseinterpreter, Image - 03/01/[address] [address] Ultrasound Report Signed Patient: Fidel Joyner AMR#: [id number] 98 : 1980Acct:[id number] Age/Sex: 44 / MADM Date: 03/01/25 Loc: HO.US Attending Dr: Piyush Jones MD Ordering Physician: Piyush Jones MD Date of Service: 03/01/25 Procedure(s): US NORBERT complete Accession Number(s): [id number] cc: Piyush Jones MD Reason for Exam: LEFT LOWER LIMB PAIN EXAMINATION: Noninvasive assessment ARTERIAL DUPLEX, ANKLE BRACHIAL INDICES (ABIs), and PULSE VOLUME RECORDINGS (PVRs) LOWER EXTREMITIES.. CLINICAL INFORMATION: Left lower extremity pain. TECHNIQUE: Ankle pulse volume recordings, ankle pressure measurements and ankle brachial indices were obtained of the lower extremity arterial system bilaterally. The study was performed only at rest. COMPARISON: None FINDINGS: BRACHIAL PRESSURES: Right: 152 Left: 156 ANKLE PRESSURES: Right: PT 108, DP 127 Left: PT 154, DP 160 ANKLE-BRACHIAL INDEX: Right: 0.81 Left: 1.03. ANKLE PVR WAVEFORMS: Right: Abnormal Left: Abnormal US/US NORBERT complete IMPRESSION: Right le.81. Left le.03. NORBERT Reference: - >1.4 = calcified vessels - 0.9 - 1.4 = normal - no significant arterial disease - 0.7 - 0.89 = mild peripheral arterial disease - 0.51 - 0.69 = moderate peripheral arterial disease - 0.50 = severe peripheral arterial disease - < .30 = critical arterial disease Electronically signed by: Danny Andrade MD 03/01/2025 10:45 AM [facility] Dictated By: Danny Pederson MD Signed By: <Electronically signed by Danny Vigil MDin OV> 03/01/25 1045 DD/ 1020 TD/TT: 03/01/25 1035 Boilerhouse Mechanic: us Piyush Jones MD IMG US PROCEDURES Final Res ult documented in this encounter Visit Diagnoses Diagnosis CVA, old, hemiparesis (CMS/HCC) (HCC)- Primary Degenerative disc disease, 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
--- OUTSIDE RECORDS SUMMARY | 2025-03-31 12:21 | XMS_ITS | Clinical Summary ---
Author Organization [employer] Address [address] [facility] 7t [place] [address] Care Team Providers Care Automatic Furnace Operator Name Role Phone Piyush Jones MD Primary Care Provider [phone] Allergies No known active allergies Medications * This document contains information received from the source organization and may not represent a complete record from that organization. triamcinolone (Kenalog) 0.1 % creamIndication s:Spongiotic dermatitis APPLY TO THE AFFECTED AREA(S) TWICE DAILY TWICE DAILY IN THE MORNING AND AT BEDTIME NEEDED FOR PAIN AND FOR SWELLING 80 g 11 02/09/2025 Active Active Problems Problem Noted Date Diagnosed Date Degenerative disc disease, thoracic 02/19/2025 Degenerative disc disease, lumbar 02/19/2025 Smoking addiction 12/17/2024 Mixed hyperlipidemia 05/18/2022 Assessment & Plan (05/18/2022 10:23 AM EST): Patient with hx of cva, he does not want to take atorvastatin, risk vs benefits discussed CVA, old, hemiparesis ([facility]/HCC) 05/18/2022 Assessment & Plan (08/13/2022 9:19 AM EDT): [facility] shira John and a 30 day holter monitor, will place orders, he refuse statin/aspirin therapy, Assessment & Plan (05/18/2022 10:24 AM EST): Lost follow up with neurology on [facility], provided telephone number to reschedule appointment, patient does not want to take aspirin/atorvastatin Encounters * This document contains information received from the source organization and may not represent a complete record from that organization. Date Type Department Care Team Description 03/03/2025 Results Follow-Up [facility] [address] [place] [address] Liseth Weinberg RN US NORBERT COMPLETE 02/19/2025 Orders Only [facility] [address] [place] [address] Piyush Jones MD CVA, old, hemiparesis (CMS/HCC) ([facility]) (Primary Dx); Degenerative disc disease, thoracic; Degeneration of intervertebral disc of lumbar region with discogenic back pain and lower extremity pain; Lower limb pain, posterior, left 02/19/2025 Results Follow-Up [facility] [address] [place] [address] Liseth Weinberg RN MR Lumbar Spine w/o Contrast 02/08/2025 Refill [facility] [address] [place] [address] Piyush Jones MD Spongiotic dermatitis 01/13/2025 Telephone [facility] [address] [place] [address] Piyush Riley MD Results 01/08/2025 Orders Only [facility] [address] [place] [address] Piyush Jones MD Lumbar radiculopathy (Primary Dx); COPD exacerbation (CMS/HCC) from Last 3 Months Immunizations Immunization Administration [...] 12/17/2024 2:17 PM EDT Plan of Treatment Upcoming Encounters Date Type Department Care Team (Late st Contact Info) Description 04/06/2025 11:30 AM EST Office Visit [facility] [address] [place] [address] Piyush Jones MD [address] [place] [address] Health Maintenance Due Date Last Done Comments [...] NORBERT COMPLETE Routine 03/01/2025 10:20 AM EST MR LUMBAR SPINE WO CONTRAST Routine 02/19/2025 [...] Recently Relevant to Health Maintenance Results * US NORBERT COMPLETE (03/01/2025 10:20 AM EST) Anatomical Region Laterality Modality Abdomen Ultrasound 03/01/2025 10:2 0 AM EST Narrative 03/01/2025 10:48 AM EST [address] [address] Ultrasound Report Signed Patient: Fidel Joyner MR#: [id number] 98 : 1980 Acct:[id number] Age/Sex: 44 / M ADM Date: 03/01/25 Loc: HO.US Attending Dr: Piyush Jones MD Ordering Physician: Piyush Jones MD Date of Service: 03/01/25 Procedure(s): US NORBERT complete Accession Number(s): [id number] cc: Piyush Jones MD Reason for Exam: [...] by: Danny Andrade MD 03/01/2025 10:45 AM EST Dictated By: Danny Pederson MD Signed By: <Electronically signed by Danny Vigil MD in OV> 03/01/25 1045 DD/ 1020 TD/TT: 03/01/25 1035 Online Activist: Procedure Note Donotuseinterpreter, Image - 03/01/[address] [address] Ultrasound Report Signed Patient: Fidel Joyner AMR#: [id number] 98 : 1980Acct:[id number] Age/Sex: 44 / MADM Date: 03/01/25 Loc: HO.US Attending Dr: Piyush Jones MD Ordering Physician: Piyush Jones MD Date of Service: 03/01/25 Procedure(s): US NORBERT complete Accession Number(s): [id number] cc: Piyush Jones MD Reason for Exam: [...] by: Danny Andrade MD 03/01/2025 10:45 AM EST Dictated By: Danny Pederson MD Signed By: <Electronically signed by Danny Vigil MDin OV> 03/01/25 1045 DD/ 1020 TD/TT: 03/01/25 1035 Online Activist: us Piyush Jones MD IMG US PROCEDURES Final Res ult * MR Lumbar Spine w/o Contrast (02/19/2025 10:13 AM EST) Anatomical Region Laterality Modality Spine, L-spine Magnetic Resonan ce 02/19/2025 10:1 3 AM EST Narrative 02/19/2025 11:28 AM EST [place] [address] Magnetic Resonance Report Signed Patient: Fidel Joyner MR#: [id number] 98 : 1980 Acct:[id number] Age/Sex: 44 / M ADM Date: 02/19/25 Loc: HO.MRI Attending Dr: Piyush Jones MD Ordering Physician: Piyush Jones MD Date of Service: 02/19/25 Procedure(s): MR lumbar spine wo con Accession Number(s): [id number] cc: Piyush Jones MD Reason for Exam: [...] 02/19/25 1125 DD/ 1013 TD/TT: 02/19/25 1045 Online Activist: Procedure Note Donotuseinterpreter, Image - 02/19/2025 [place] [address] Magnetic Resonance Report Signed Patient: Fidel Joyner AMR#: [id number] 98 : 1980Acct:[id number] Age/Sex: 44 / MADM Date: 02/19/25 Loc: HO.MRI Attending Dr: Piyush Jones MD Ordering Physician: Piyush Jones MD Date of Service: 02/19/25 Procedure(s): MR lumbar spine wo con Accession Number(s): [id number] cc: iPyush Jones MD Reason for Exam: L5-S1 radiculopathy [...] 02/19/25 1125 DD/ 1013 TD/TT: 02/19/25 1045 Online Activist: Piyush Jones MD [facility] [place] PROCEDURES Final Re sult * HIV-1 RNA, Quantitative, Real-Time PCR with Reflex to Genotype (RTI, PI, Integrase) (06/18/2022 8:56 AM EST) HIV 1 RNA, QN PCR NOT DETECTED copies/mL [facility], HIV 1 RNA, QN PCR NOT DETECTED Log copies/mL [facility], Comment: REFERENCE RANGE: NOT DETECTED copies/mL NOT DETECTED Log copies/mL This test was performed using Real-Time Polymerase Chain Reaction. Reportable range is 20 to 10,000,000 copies/mL (1.30-7.00 Log copies/mL). 06/18/2022 8:56 AM EST 06/18/2022 8:57 AM EST Narrative [facility] - 06/21/2022 4:58 PM EST FASTING:YES FASTING: YES Ben Pratt MD LAB BLOOD ORDERABL ES Final Result Performing Organization Address [facility] Co de Phone Number [facility] [address] [place] [address], [place] [address] [employer], [address] [place] [address] * Hepatitis C Antibody with Reflex to HCV, RNA, Quantitative, Real-Time PCR (06/18/2022 8:56 AM EST) Hepatitis C Antibody NON-REACT DELVIN NON-REACT DELVIN Yorder Index 0.05 <1.00 Yorder Comment: HCV antibody was non-reactive. There is no laboratory evidence of HCV infection. In most cases, no further action is required. However, if recent HCV exposure is suspected, a test for HCV RNA (test code 83159) is suggested. For additional information please refer to http://education.Domain Apps/faq/SKW55o3 (This link is being provided for informational/ educational purposes only.) Blood Venous blood specimen / Unknown 06/18/2022 8:56 AM EST 06/18/2022 8:57 AM EST Narrative [facility] - 06/21/2022 4:58 PM EST FASTING:YES FASTING: YES Ben Pratt MD LAB BLOOD ORDERABL ES Final Result Performing Organization Address City/[facility]/ZIP Co de Phone Number [facility] [address] [place] [address], [place] [address] [employer] [place] [employer], (Nl2) [place] [address] * (ABNORMAL) Lipid Panel, Standard (06/18/2022 8:56 AM EST) Cholesterol, Total 262(H) <200 mg/dL [employer] [place] [employer] HDL Cholesterol 46 > OR = 40 mg/dL [employer] [place] [employer] Triglycerides 104 <150 mg/dL [employer] [place] [employer] LDL Cholesterol 193(H) mg/dL (calc) [employer] Comment: LDL-C levels > or = 190 mg/dL may indicate familial hypercholesterolemia (FH). Clinical assessment and measurement of blood lipid levels should be considered for all first degree relatives of patients with an FH diagnosis. For questions about testing for familial hypercholesterolemia, please call [employer] [facility] at [email or web address].[employer]. Martin Martinez, et al. J National Lipid Association Recommendations for Patient-Centered Management of Dyslipidemia: Part 1 Journal of Clinical Lipidology 2015;9(2), 129-169. Reference range: <100 Desirable range <100 mg/dL for primary prevention; <70 mg/dL for patients with CHD or diabetic patients with > or = 2 CHD risk factors. LDL-C is now calculated using the Wally-Orourke calculation, which is a validated novel method providing better accuracy than the Friedewald equation in the estimation of LDL-C. Wally SS et al. DENILSON. 2013;310(19): 3196-3623 (http://education.2d2c/faq/ZGB241) Chol/HDLC Ratio 5.7(H) <5.0 (calc) [employer] [place] [employer] Non-HDL Cholesterol 216(H) <130 mg/dL (calc) [employer] [place] [employer] Comment: For patients with diabetes plus 1 major ASCVD risk factor, treating to a non-HDL-C goal of <100 mg/dL (LDL-C of <70 mg/dL) is considered a therapeutic option. Blood Venous blood specimen / Unknown 06/18/2022 8:56 AM EST 06/18/2022 8:57 AM EST Narrative [facility] - 06/21/2022 4:58 PM EST FASTING:YES FASTING: YES Ben Pratt MD LAB BLOOD ORDERABL ES Final Result [facility] [address] [facility], [address], [place] [address] [facility] [address] [facility], (Nl2) [place] [address] from Last 3 Months or Most Recently Relevant to Health Maintenance Insurance [facility] Care Teams Automatic Furnace Operator Relationship Specialty Start Date End Date Piyush Jones MD [address] [place] [address] JOCELYNN Strauss [address] PCP - General Internal Medicine 01/04/23
--- OUTSIDE RECORDS SUMMARY | 2025-03-31 12:21 | XMS_ITS | Clinical Summary ---
Author Organization [facility] Address [address] [place] [address] Care Team Providers Care Gis Scientist Name Role Phone Ben Toney MD Primary [...] 3-dose series) 1997 Alcohol/Substance Use Screening 04/15/2024 Influenza Vaccine (#1) 2024 COVID-19 Vaccine (3 - 2024-2 6 season) 2024 11/22/2020, 11/01/2020 DTaP,Tdap,and Td Vaccines (2 - Td or Tdap) 04/10/2029 04/10/2019, 04/30/2012 Pneumococcal Vaccine: Pediatric (0-5 Years) and At-Risk Patients (6-50 Years) Aged Out No longer eligible based on patient's age to complete this topic Insurance [facility] Care Teams Gis Scientist Relationship Specialty Start Date End Date Ben Toney MD [address] [place] [address] PCP - General 01/05/20
--- OUTSIDE RECORDS SUMMARY | 2025-03-31 12:21 | XMS_ITS | Encounter Summary ---
Author Organization [facility] Address [address] [place] [address] Care Team Providers Care Forge Helper Name Role Phone Ben Toney MD Primary Care Prov ider Encounter Details Date Type Department Care Team (Late st Contact Info) Description 11/10/2021 Telephone [facility] Central Scheduling Department [address] [place] [address] Telephone Intake, Staff Social History Tobacco Use [...] Please give her a call back at [phone] page I did advise to call her insurance documented in this encounter Plan of Treatment Not on file documented as of this encounter Visit Diagnoses Not on filedocumented in this encounter Care Teams Forge Helper Relationship Specialty Start Date End Date SandovalBen Merritt MD [address] [place] [address] PCP - General 01/05/20 documented as of this encounter
--- OUTSIDE RECORDS SUMMARY | 2025-03-31 12:21 | XMS_ITS | Encounter Summary ---
Author Organization [facility] Address [address] [place] [address] Care Team Providers Care Workforce Consultant Name Role Phone Ben Toney MD Primary Care Prov ider Encounter Details Date Type Department Care Team (Late st Contact Info) Description 01/31/2021 Orders Only [facility] [address] [place] [address] Provider, Nii, [address] [place] [address] Social History Tobacco Use Types Packs/Day [...] of this encounter Procedures * Due to [place] law, this organization might not be sharing negative HIV tests. Procedure Name Priority Date/Time Associated Diagnosis Comments AMB EXTERNAL MRI BRAIN, OUTS GABRIEL RESULT Routine 09/08/[address] HEAD, OUTSID E RESULT Routine 09/08/2019 documented in this encounter Results * Due to [place] law, this organization might not be sharing negative HIV tests. * MRI Brain, Outside Result (09/08/2019) us Unknown Provider MD YANCEY EXTERNAL RESULT PROCEDUR ES Final Result * CT Head, Outside Result (09/08/2019) us Unknown Provider MD YANCEY EXTERNAL RESULT PROCEDUR ES Final Result documented in this encounter Visit Diagnoses Not on filedocumented in this encounter Care Teams Workforce Consultant Relationship Specialty Start Date End Date SandovalBen Merritt MD [address] [place] [address] PCP - General 01/05/20 documented as of this encounter
--- OUTSIDE RECORDS SUMMARY | 2025-03-31 12:21 | XMS_ITS | Encounter Summary ---
Author Organization [employer] Address [address] [place] [address] [address] [place] [address] Care Team Providers Care Con[employer]ing [employer] Laborer Name Role Phone Piyush Jones MD Primary Care Provider [phone] Reason for Referral * Imaging (Routine) - Closed Specialty Diagnoses / Procedures Referred By Shalini lo Referred To Contact Radiology Diagnoses Lumbar radiculopathy Procedures MR Lumbar Spine w/o Contrast Piyush Jones MD [address] [place] [address] Phone: tel: fax: [address] [address] Phone: tel: fax: Referral ID Status Reason Start Date Expiration Date Visits Re quested Visits Authorized [id number] Closed 01/08/2025 01/08/2026 1 1 Encounter Details Date Type Department Care Team (Late st Contact Info) Description 01/08/2025 Orders Only [facility] [address] [place], [place] [id number] Piyush Jones MD [address] [place] [address] [phone] Lumbar radiculopathy (Primary Dx); COPD exacerbation (CMS/HCC) [...] Description 04/06/2025 11:30 AM EST Office Visit [facility] [address] [place] [address] Piyush Jones MD [address] [place] [address] documented as of this encounter Procedures Procedure Name Priority Date/Time Associated Diagnosis Comments MR LUMBAR SPINE WO CONTRAST Routine 02/19/2025 10:13 AM EST Lumbar radiculopathy documented in this encounter Results * MR Lumbar Spine w/o Contrast (02/19/2025 10:13 AM EST) Anatomical Region Laterality Modality Spine, L-spine Magnetic Resonan ce 02/19/2025 10:1 3 AM EST Narrative 02/19/2025 11:28 AM EST [place] [address] Magnetic Resonance Report Signed Patient: Fidel Joyner MR#: [id number] 98 : 1980 Acct:[id number] Age/Sex: 44 / M ADM Date: 02/19/25 Loc: HO.MRI Attending Dr: Piyush Jones MD Ordering Physician: Piyush Jones MD Date of Service: 02/19/25 Procedure(s): MR lumbar spine wo con Accession Number(s): [id number] cc: Piyush Jones MD Reason for Exam: L5-S1 radiculopathy on [employer] Workstation: Identify-1 EXAMINATION: MR LUMBAR SPINE WITHOUT IV CONTRAST [...] 02/19/25 1125 DD/ 1013 TD/TT: 02/19/25 1045 Process Treater: Procedure Note Donotuseinterpreter, Image - 02/19/2025 [place] [address] Magnetic Resonance Report Signed Patient: Fidel Joyner AMR#: [id number] 98 : 1980Acct:[id number] Age/Sex: 44 / MADM Date: 02/19/25 Loc: HO.MRI Attending Dr: Piyush Jones MD Ordering Physician: Piyush Jones MD Date of Service: 02/19/25 Procedure(s): MR lumbar spine wo con Accession Number(s): [id number] cc: Piyush Jones MD Reason for Exam: [...] 02/19/25 1125 DD/ 1013 TD/TT: 02/19/25 1045 Process Treater: Piyush Jones MD IMG MRI PROCEDURES Final Re sult documented in this encounter Visit Diagnoses Diagnosis Lumbar radiculopathy- Primary Thoracic or lumbosacral neuritis or radiculitis, unspecified COPD exacerbation (CMS/HCC) (HCC) Obstructive chronic bronchitis with exacerbation documented in this encounter Additional Health Concerns Assessment Noted Time PHQ-9 Depression Total Score: 4 12/18/19 25 2:19 PM EDT documented as of this encounter Care Teams [employer] Laborer Relationship Specialty Start Date End Date Piyush Jones MD [address] [place] [address] PCP - General Internal Medicine 01/04/23 documented as of this encounter
== END 2025-03-31 10:34 | disposition home or self-care (01) ==
LOC: HO.HVS 10:07
PROVIDERS: PCP Internal Medicine; Visit Provider Surgery Vascular Surgery
DX: M79.604 Pain in right leg (principal); M79.605 Pain in left leg
CPT/HCPCS: 99204

== ENCOUNTER → 2025-03-31 10:06 | Outpatient (BNVA) | payer OTHER, SELFPAY | PROVIDERS: PCP Internal Medicine; Visit Provider Surgery Vascular Surgery | DX: M79.604 Pain in right leg (principal); M79.605 Pain in left leg | CPT/HCPCS: 99202 ==